=== PATIENT | male | born 1975 ===

== ENCOUNTER 2017-07-06 18:46 | Emergency (ER) | payer MEDICAID ==
[2017-07-06 18:48] VITALS: BMI 20.8
[2017-07-06 19:57] VITALS: TEMP 98.2
--- NOTE | 2017-07-06 20:04 | ED PDOC ---
"Arrival/HPI - General Chief Complaint: Male Genitourinary Time Seen by Provider: 07/06/17 19:06 Historian: Patient - History of Present Illness Narrative History of Present Illness (Text): 07/06/17 19:48 Pt is a 42 year old male with a past medical history of epididymitis, presents to the ED for right testicular pain that is exacerbated by standing and walking and relieved by sitting or sleeping for the past 3 days. Reports that he has associated dysuria and suprapubic pain that refers down to each upper thigh. States that he only seems to have this issue after he has had anal sex with his of 23 years. Denies more than one sexual partner, hematuria, fever, chills , nocturnal pain, nausea, vomiting or diarrhea, back pain or any other symptoms. Symptom Onset: Sudden Symptom Course: Unchanged Quality: Aching, Pressure Severity Level: 2, Mild Activities at Onset: Rest Context: Home Past Medical History - Provider Review Nursing Documentation Reviewed: Yes - Travel History Have you recently traveled outside [place] w/in the past 3 mons?: No - Infectious Disease Hx of Infectious Diseases: None - Cardiac Hx Cardiac Disorders: No - Pulmonary Hx Respiratory Disorders: Yes Hx Asthma: Yes - Neurological Hx Neurological Disorder: Yes Hx Dizziness: Yes - HEENT Hx HEENT Disorder: No - Renal Hx Renal Disorder: No - Endocrine/Metabolic Hx Endocrine Disorders: No - Hematological/Oncological Hx Blood Disorders: No - Integumentary Hx Dermatological Disorder: No - Musculoskeletal/Rheumatological Hx Musculoskeletal Disorders: No - Gastrointestinal Hx Gastrointestinal Disorders: No - Genitourinary/Gynecological Hx Genitourinary Disorders: Yes Other/Comment: SWOLLEN TESTICLE - Psychiatric Hx Psychophysiologic Disorder: No Hx Substance Use: No - Surgical History Hx Orthopedic Surgery: Yes Other/Comment: left collar bone - Anesthesia Hx Anesthesia: No Hx Anesthesia Reactions: No Hx Malignant Hyperthermia: No Family/Social History - Physician Review Nursing Documentation Reviewed: Yes Family/Social History: Unknown Family HX Smoking Status: Smoker Currrent Status Unknown Hx Alcohol Use: Yes Frequency of alcohol use: Socially Hx Substance Use: No Allergies/Home Meds Allergies/Adverse Reactions: Allergies No Known Allergies Allergy (Verified 07/06/17 18:57) Review of Systems - Physician Review All systems were reviewed & negative as marked: Yes - Review of Systems Constitutional: Normal Eyes: Normal ENT: Normal Respiratory: Normal Cardiovascular: Normal Gastrointestinal: Normal Genitourinary Male: Dysuria, Urinary Output Changes, Other (Right testicular pain) Musculoskeletal: Normal Skin: Normal Neurological: Normal Endocrine: Normal Hemo/Lymphatic: Normal Psychiatric: Normal Physical Exam Vital Signs Reviewed: Yes Vital Signs Temp Pulse Resp BP Pulse Ox 07/06/17 21:45 98.2 F 07/06/17 21:17 75 17 140/82 99 07/06/17 18:58 98.2 F 72 16 146/81 98 Temperature: Afebrile Blood Pressure: Normal Pulse: Regular Respiratory Rate: Normal Appearance: Positive for: Well-Appearing, Non-Toxic, Comfortable Pain Distress: Mild Mental Status: Positive for: Alert and Oriented X 3 - Systems Exam Head: Present: Atraumatic, Normocephalic Neck: Present: Normal Range of Motion Respiratory/Chest: Present: Clear to Auscultation, Good Air Exchange. No: Respiratory Distress, Accessory Muscle Use Cardiovascular: Present: Regular Rate and Rhythm, Normal S1, S2. No: Murmurs Abdomen: Present: Normal Bowel Sounds. No: Tenderness, Distention, Peritoneal Signs Rectal: No: Occult Blood, Rectal Tenderness, Gross Blood, Melena, Hemorrhoids, Normal Rectal Tone, Fissures, Nodule/Mass/Lesions, Other Genitourinary Male: Present: Normal External Genitalia, Testicle Tenderness ( Right testicle), Testicle Swelling (right testicle). No: Circumcised Penis, Lesions, Penile Discharge, Penile Swelling, Masses, Erythema, Hernias, Prostate Tenderness, Prostate Enlargement, Other Back: Present: Normal Inspection. No: CVA Tenderness, Midline Tenderness, Paraspinal Tenderness, Pain with Leg Raise, Decubitus Ulcer, Other Upper Extremity: Present: Normal Inspection. No: Cyanosis, Edema Lower Extremity: Present: Normal Inspection, NORMAL PULSES, Normal ROM. No: Edema, CALF TENDERNESS, Cyanosis, Tracy's Sign, Tenderness, Swelling, Erythema, Deformity, Temperature Abnormalties, Neurovascularly Intact, Capillary Refill < 2 s, Other Neurological: Present: GCS=15, CN II-XII Intact, Speech Normal Skin: Present: Warm, Dry, Normal Color. No: Rashes, Diaphoretic, Erythematous, Induration, Hot, Cold, Pale, Laceration, Abscess, Abrasion, Other Psychiatric: Present: Alert, Oriented x 3, Normal Insight, Normal Concentration Medical Decision Making ED Course and Treatment: 07/06/17 20:04 Impression Pt is a 42 year old male with a past medical history of epididymitis, presents to the ED for right testicular pain that is exacerbated by standing and walking and relieved by sitting or sleeping. Ddx: testicular torsion, epididymitis, orchitis Plan GC DNA UA U/S for right testicle Progress note Discussed findings with patient; considering his history, recommended follow up with a urologist in the next week NSAID for pain and inflammation and jock strap for comfort while walking, etc - Lab Interpretations Lab Results: Lab Results 07/06/17 21:05: Urine Color Yellow, Urine Appearance Clear, Urine pH 6.0, Ur Specific [place] 1.025, Urine Protein Negative, Urine Glucose (UA) Negative, Urine Ketones Negative, Urine Blood Negative, Urine Nitrate Negative, Urine Bilirubin Negative, Urine Urobilinogen 0.2, Ur Leukocyte Esterase Negative I have reviewed the lab results: Yes - RAD Interpretation Narrative RAD Interpretations (Text): 07/06/17 20:59 EXAM: US Scrotum EXAM DATE/TIME: 07/06/2017 7:07 PM CLINICAL HISTORY: The patient age is 42 years old and is male; Pain; Scrotum pain; Patient HX: Patient had scrotal us done 04/29/16. Scanned report for comparison; Additional info: Right side testicular pain Facility exam id and description: Us_testidp testes duplex complete TECHNIQUE: Real-time ultrasound of the scrotum with color Doppler and image documentation. COMPARISON: US - TESTES DUPLEX COMPLETE 2016-04-19 19:11 FINDINGS: Right testicle: There is a small hyperechoic focus adjacent to the right testis measuring 0.3 x 0.2 cm, consistent with a scrotal renata. The right testis measures 3.3 x 2.0 x 2.4 cm. Physiologic vascular flow is visualized within the right testis and epididymis. There is a subcentimeter isoechoic focus inferior to the right testis, suggestive of appendix testis. No torsion. No intratesticular mass. Left testicle: The left testis measures 3.3 x 2.1 x 2.5 cm. There is physiologic blood flow within the left left testis. No torsion. No intratesticular mass. Epididymides: Several hypoechoic cysts are visualized within the right epididymis, the largest measuring 0.6 x 0.5 x 0.6 cm. The left epididymis measures 0.9 x 0.9 x 0.6 cm. The right epididymis measures 0.8 x 1.4 x 1.1 cm. No left epididymal cyst or mass. Scrotum: There are small bilateral hydroceles. There are bilateral varicoceles. IMPRESSION: 1. There is physiologic blood flow within each testis, without evidence of torsion. 2. Several cysts are again visualized within the right epididymis, the largest measuring 0.6 x 0.5 x 0.6 cm. 3. There are small bilateral hydroceles. JOSE L NICOLÁS | Final Radiology Report CONFIDENTIALITY STATEMENT This report is intended only for use by the referring physician, and only in accordance with law. If you received this in error, call [phone]. Page 2 of 2 4. There is a small hyperechoic focus adjacent to the right testis measuring 0.3 x 0.2 cm, consistent with a scrotal renata. 5. There are bilateral varicoceles. 6. There is a subcentimeter isoechoic focus inferior to the right testis, suggestive of appendix testis. Radiology Orders: 07/06/17 19:07 TESTES DUPLEX COMPLETE [US] Stat Evs Attendant: Radiologist Disposition/Present on Arrival - Present on Arrival Any Indicators Present on Arrival: Yes History of DVT/PE: No History of Uncontrolled Diabetes: No Urinary Catheter: No History of Decub. Ulcer: No History Surgical Site Infection Following: None - Disposition Have Diagnosis and Disposition been Completed?: Yes Diagnosis: Orchitis of right testicle, Hydrocele of testis Disposition: HOME/ ROUTINE Disposition Time: 21:03 Patient Plan: Discharge Condition: STABLE Discharge Instructions (ExitCare): Epididymo-orchitis (ED) Additional Instructions: Dear Nicolás, Thank you for allowing us to take care of you! We recommend that you follow up with a urologist to ascertain why you have this recurrent problem. If you experience worsening of pain or other symptoms over the next 12-24 hours , return to the Emergency Department for further evaluation. To manage your pain, you can take Ibuprofen 400mg every 6 hrs with food. All the best to you, EMILY Hawley Prescriptions: Naproxen [Naprosyn] 500 mg PO BID 5 Days #10 tablet Referrals: Shaniqua Smith MD [Primary Care Provider] - Follow up with primary Yaya Starks MD [Staff Provider] - Follow up with primary Forms: [employer] (Green[place]ic)"
--- NOTE | 2017-07-06 20:49 | US ---
EXAM: US Scrotum EXAM DATE/TIME: 07/06/2017 7:07 PM CLINICAL HISTORY: The patient age is 42 years old and is male; Pain; Scrotum pain; Patient HX: Patient had scrotal us done 04/29/16. Scanned report for comparison; Additional info: Right side testicular pain Facility exam id and description: Us testidp testes duplex complete TECHNIQUE: Real-time ultrasound of the scrotum with color Doppler and image documentation. COMPARISON: US - TESTES DUPLEX COMPLETE 2016-04-19 19:11 FINDINGS: Right testicle: There is a small hyperechoic focus adjacent to the right testis measuring 0.3 x 0.2 cm, consistent with a scrotal renata. The right testis measures 3.3 x 2.0 x 2.4 cm. Physiologic vascular flow is visualized within the right testis and epididymis. There is a subcentimeter isoechoic focus inferior to the right testis, suggestive of appendix testis. No torsion. No intratesticular mass. Left testicle: The left testis measures 3.3 x 2.1 x 2.5 cm. There is physiologic blood flow within the left left testis. No torsion. No intratesticular mass. Epididymides: Several hypoechoic cysts are visualized within the right epididymis, the largest measuring 0.6 x 0.5 x 0.6 cm. The left epididymis measures 0.9 x 0.9 x 0.6 cm. The right epididymis measures 0.8 x 1.4 x 1.1 cm. No left epididymal cyst or mass. Scrotum: There are small bilateral hydroceles. There are bilateral varicoceles. IMPRESSION: 1. There is physiologic blood flow within each testis, without evidence of torsion. 2. Several cysts are again visualized within the right epididymis, the largest measuring 0.6 x 0.5 x 0.6 cm. 3. There are small bilateral hydroceles. 4. There is a small hyperechoic focus adjacent to the right testis measuring 0.3 x 0.2 cm, consistent with a scrotal renata. 5. There are bilateral varicoceles. 6. There is a subcentimeter isoechoic focus inferior to the right testis, suggestive of appendix testis.
[2017-07-06 21:15] LABS: URINE BILIRUBIN NEGATIVE (NEGATIVE); URINE BLOOD NEGATIVE (NEGATIVE); URINE GLUCOSE (UA) NEGATIVE (NEGATIVE); URINE LEUKOCYTE ESTERASE NEGATIVE Leu/uL (NEGATIVE); URINE PROTEIN NEGATIVE mg/dL (<30 mg/dL); URINE UROBILINOGEN 0.2 E.U./dL (<1 E.U./dL)
[2017-07-06 21:18] VITALS: BP 140/82; PULSE 75; RESP 17; O2SAT 99
[2017-07-06 21:18] LABS: URINE APPEARANCE CLEAR (CLEAR); URINE COLOR YELLOW (YELLOW)
== END 2017-07-06 21:46 | disposition home or self-care (01) ==
LOC: ED 18:46
DX: N45.2 Orchitis (principal); N43.3 Hydrocele, unspecified